=== PATIENT | male | born 1970 | race Caucasian/White ===

== ENCOUNTER 2016-06-15 04:26 | Emergency (ER) | payer BC ==
[~2016-06-15 04:26] MED LIST: ASAB PO; AUG875 PO; C5 PO; COREG12 PO; COREG25 PO; FLOMAX4 PO; HYDROCHLOROT25 MG PO; JANTOVEN5 MG PO; KLONO5 PO; L20 PO; L40 PO; LOTE40 PO; LOVENOX80 SC; MAGOX4 PO; MELA3 PO; MYLUD PO; NORCO PO; NORV5 PO; OCEAN NAS; P10; PRIN10 PO; PRIN5 PO; SPIRO25 PO; TYLENOL ARTH650 MG PO; [UNRECOGNIZED DRUG - OTHER] PO
[2016-06-15 04:36] LABS: INTERNATIONAL NORMAL RATI 1.4 UNITS (-); PARTIAL THROMBO TIME 28.1 SEC (22.5-37.2)
[2016-06-15 04:56] LABS: BASOPHILS 0.4 %; BASOPHILS ABSOLUTE 0.04 10/3/uL (0.0-0.16); EOSINOPHILS 1.5 %; EOSINOPHILS ABSOLUTE 0.16 10/3/uL (0.0-0.53); HEMATOCRIT 42.2 % (40.0-51.0); HEMOGLOBIN 13.8 g/dL (13.6-17.8); IMMATURE GRANULOCYTES 0.3 %; IMMATURE GRANULOCYTES ABSOLUTE 0.03 10/3/uL (0.0-0.11); LYMPHOCYTES 23.4 %; LYMPHOCYTES ABSOLUTE 2.52 10/3/uL (0.67-4.30); MEAN CORPUSCULAR VOLUME 91.7 fL (80-100); MEAN PLATELET VOLUME 9.7 fL (9.2-13.0); MONOCYTES ABSOLUTE 0.43 10/3/uL (0.21-1.20); NEUTROPHILS 70.4 %; NEUTROPHILS ABSOLUTE 7.61 10/3/uL (2.02-8.40); PLATELET COUNT 273 10/3/uL (150-400); WHITE BLOOD CELLS 10.8 10/3/uL (4.5-10.5)
[2016-06-15 04:58] LABS: CALCIUM, SERUM 8.3 MG/DL (8.5-10.4); CHLORIDE, SERUM 106 MMOL/L (96-112); CO2 (CARBON DIOXIDE) 22 MMOL/L (24-34); CREATININE 1.28 MG/DL (0.70-1.30); GFR AFRICAN AMERICAN 77 ML/MIN (>=60); GFR NON AFRICAN AMERICAN 67 ML/MIN (>=60); GLUCOSE, SERUM 119 MG/DL (60-99)
[2016-06-15 05:01] LABS: MANUAL DIFF NO %; MEAN CORPUS HGB CONC 32.7 g/dL (32.0-36.0)
[2016-06-15 05:06] LABS: POTASSIUM, SERUM 3.8 MMOL/L (3.5-5.3); SODIUM, SERUM 141 MMOL/L (135-148)
[2016-06-15 05:08] LABS: BUN (BLOOD UREA NITROGEN) 23 MG/DL (6-23)
[2016-06-15 05:10] LABS: CHEST PAIN PROFILE TAT 0 Hrs 27 Mins; TROPONIN I 0.12 NG/ML (<0.05)
[2016-06-15 05:26] LABS: ER CBC TAT 0 Hrs 03 Mins
[2016-10-18] MEDS ORDERED: COREG6 PO (10:47)
[2016-10-18] MEDS ORDERED: ELIQUIS 5 MG TAB5 MG PO (10:47)
[2016-10-18] MEDS ORDERED: SPIRO25 PO (10:48)
[2016-10-18] MEDS ORDERED: L40 PO (10:48)
[2016-10-18] MEDS ORDERED: FLOMAX4 PO (10:49)
[2016-10-18] MEDS ORDERED: VICKS INH (10:50)
== END 2016-06-15 06:26 | disposition home or self-care (01) ==
LOC: ER 04:26
PROVIDERS: Emergency Medicine
DX: I50.9 Heart failure, unspecified (principal); Z79.899 Other long term (current) drug therapy; Z79.01 Long term (current) use of anticoagulants
CPT/HCPCS: 71010; 80048; 83735; 83880; 84484; 85025; 85610; 85730; 93005; 96374; 96375; 99284; J1980; J2405; J2550

== ENCOUNTER 2016-06-29 23:06 | Inpatient (IN) | payer BC ==
--- NOTE | ~2016-06-29 | DS ---
Discharge Summary [facility] [address] [facility] [place]. [address] NAME: SABA PRICE : 69 STATUS : DIS IN PAT#: [id number] AGE: 46 ADM/REG DATE : 06/30/16 MR#: [id number] REPORT SERV DATE: 07/13/16 DICTATED BY: MIRIAM BRIGGS DATE: 07/12/16 REPORT STATUS : Draft TRANSCRIBED BY: MODL DATE: 07/12/16 Data Collection from hospitalization DISCHARGE DIAGNOSES: 1. Nonischemic cardiomyopathy. 2. Left ventricular thrombus. 3. Chronic kidney disease. 4. Congestive heart mtuuwmp-xhvueqru-teksc/chronic. 5. Former smoker. 6. Anxiety/panic disorder. CONSULTATIONS: None. PROCEDURES PERFORMED: 1. Cardiac catheterization, 06/30/2016. 2. Myocardial perfusion imaging study, 06/30/2016. DISCHARGE MEDICATIONS: Aspirin 81 mg daily, Coreg 12.5 mg twice a day, Lasix 40 mg at bedtime, Prinivil 5 mg daily, Aldactone 25 mg daily, Flomax 0.4 mg every morning, Coumadin 7.5 mg daily. He was instructed not to continue Mag-Ox, Bumex, or Klonopin. CONDITION AT DISCHARGE: Stable. DISPOSITION: The patient was discharged home on a low-sodium, low-cholesterol diet with activities as instructed. He would follow up with Dr. Arnaud Avendaño, 07/05/2016. He would follow up with Dr. Ely Briggs as instructed. HOSPITAL COURSE: This is a 46-year-old man, who has nonischemic cardiomyopathy, who presented following the acute onset of 7-8/10 intensity chest pain while at rest on the evening prior to this admission. The patient reports a duration of pain for 20-30 minutes with spontaneous resolution without treatment. Upon his arrival in the emergency department, he was asymptomatic. He reported associated nausea and epigastric abdominal discomfort with the pain. He reports that he was recently seen in the emergency department for fluid overload. He was treated with intravenous Lasix and discharged home. This had resolved since that time. He reports at that time a description of abdominal discomfort and intermittent nausea. There was intermittent meal association with nausea and epigastric discomfort. Until the evening prior to this admission, he had no significant chest discomfort. He was currently pain free. On evaluation, his initial enzyme was minimally elevated. He was admitted to the hospital at this time for further evaluation and treatment. Upon admission, we were going to treat him for gastroesophageal reflux disease. He does have known coronary artery disease with nonischemic cardiomyopathy. However, we were suspicious for potential GI etiology given any associated nausea and epigastric abdominal pain. We were going to arrange for a nuclear perfusion stress test if his second enzyme was unremarkable. It had been some time since he had an echocardiogram. We would arrange for the same to reevaluate left ventricular systolic function. He appeared clinically euvolemic by exam. A myocardial perfusion imaging study was performed. This demonstrated possible Discharge Summary [place] [id number] [facility] [place]. [address] NAME: SABA PRICE : 69 STATUS : DIS IN PAT#: [id number] AGE: 46 ADM/REG DATE : 06/30/16 MR#: [id number] REPORT SERV DATE: 07/13/16 DICTATED BY: MIRIAM BRIGGS DATE: 07/12/16 REPORT STATUS : Draft TRANSCRIBED BY: EBONI DATE: 07/12/16 mild inferolateral ischemia. Post infusion, left ventricular ejection fraction was 11%. Cardiomegaly was noted. This was overall high risk vasodilator stress test due to severely depressed left ventricular ejection fraction. It was felt that he would need to undergo a cardiac catheterization. He was taken to the cardiac cardiac catheterization technician, where he underwent the above mentioned procedure. He tolerated this well and there were no complications. The following day, he had no shortness of breath or chest pain. He had no significant coronary artery disease. He had severely elevated left ventricular end-diastolic filling pressure. Echocardiogram demonstrated severe global hypokinesis with an ejection fraction of 10%. Left ventricular apical thrombus was noted. Findings were consistent with nonischemic cardiomyopathy. INR level was 1.6. On 07/02/2016, his shortness of breath had decreased. He had no chest pain. His lungs were mostly clear. He said he was feeling better. Diuresis was being performed. Creatinine level had increased to 1.77. Oral Lasix was being given. The next day, discharge planning was performed. He had occasional nonsustained ventricular tachycardia. Diuretic was held that day. Blood pressure was controlled. Discharge planning was performed. On 07/04/2016, he was in a sinus rhythm. He had no dyspnea or chest pain. He was alert and cooperative. Chronic kidney disease had improved. Discharge instructions were given. Due to his improved and stable condition, he was discharged home with the above-stated instructions. Information collected by: Merna Hebert I submit the above information as my discharge summary. GLORY/EBONI Ely Briggs M.D. / [id number] CC: Natali Nolen Jr., M.D.
--- NOTE | ~2016-06-29 | HP ---
History And Physical [place] [address] [place]. [address] NAME: SABA PRICE : 69 STATUS : ADM Gokul PAT#: [id number] AGE: 46 ADM/REG DATE : 06/30/16 MR#: [id number] REPORT SERV DATE: 06/30/16 DICTATED BY: MIRIMA BRIGGS DATE: 06/30/16 REPORT STATUS : Draft TRANSCRIBED BY: MODL DATE: 06/30/16 DATE OF ADMISSION: 06/30/2016 CHIEF COMPLAINT: Chest pain, abdominal pain, and nausea. HISTORY OF PRESENT ILLNESS: The patient is a 46-year-old male with history of nonischemic cardiomyopathy who reported to the emergency department with complaints of nausea and chest discomfort. While at rest, the patient developed acute onset of 7 to 8/10 intensity chest discomfort. It was in the central substernal region. DICTATION ENDS HERE CSL/MODL Ely Briggs M.D. / [id number] CC: Natali Nolen Jr., M.D.
--- NOTE | ~2016-06-29 | HP ---
History And Physical [place] [address] [place]. [address] NAME: SABA PRICE : 69 STATUS : ADM Gokul PAT#: [id number] AGE: 46 ADM/REG DATE : 06/30/16 MR#: [id number] REPORT SERV DATE: 06/30/16 DICTATED BY: MIRIAM BRIGGS DATE: 06/30/16 REPORT STATUS : Draft TRANSCRIBED BY: MODL DATE: 06/30/16 DATE OF ADMISSION: 06/30/2016 CHIEF COMPLAINT: Nausea, abdominal pain, and chest pain. HISTORY OF PRESENT ILLNESS: 46-year-old male with known nonischemic cardiomyopathy who presents following the acute onset of 7-8/10 intensity chest pain while at rest last evening. The patient reports duration of pain for 20-30 minutes with spontaneous resolution without treatment. Upon his arrival in the emergency department, he was asymptomatic. He reports associated nausea and epigastric abdominal discomfort with the pain. He reports that he was recently seen in the emergency department for "fluid overload." Treated with intravenous Lasix and discharged to home. This has resolved since that time. He reports at the time that he described abdominal discomfort and intermittent nausea. Intermittent meal association with the nausea and epigastric discomfort. Until last evening, the patient has had no significant chest discomfort. The patient is currently pain free. On evaluation, initial enzyme was minimally elevated. The patient was admitted for further evaluation and treatment. The patient endorses a history of GERD but states that he has never been on medications. PAST MEDICAL HISTORY: 1. Nonischemic cardiomyopathy. a. Cardiac catheterization 2012 with no flow limiting CAD. 2. Pulmonary embolus in 2013 with sporadic chronic anticoagulation. Has not been anticoagulated since at least first part of 2015 due to social issues and coughs related to testing. 3. Anxiety/panic disorder. SOCIAL HISTORY: Denies current smoking. Ill-defined alcohol use. Denies illicit drug use. He has been unemployed for the last 2 years. FAMILY HISTORY: Noncontributory. ALLERGIES: NO KNOWN DRUG ALLERGIES. THE PATIENT DOES HOWEVER REPORT MULTIPLE TREATMENTS WITH PHENERGAN IN THE PAST WITHOUT DIFFICULTIES. THE LAST TIME HE RECEIVED PHENERGAN, HE HAD SOME TRANSIENT "MUSCLE SPASM" IN THE LEGS. MEDICATIONS: Carvedilol 12.5 mg b.i.d., furosemide 40 mg b.i.d., Bumex 2 mg daily, lisinopril 5 mg daily, Flomax 0.4 mg daily. REVIEW OF SYSTEMS: Negative for all organ systems except per the history of present illness. PHYSICAL EXAMINATION: VITALS: Pulse 102, blood pressure ranged from 128/97 to 144/98, respirations 12 and History And Physical [place] [address] [facility] [place]. [address] NAME: SABA PRICE : 68 STATUS : ADM Gokul PAT#: [id number] AGE: 46 ADM/REG DATE : 06/30/16 MR#: [id number] REPORT SERV DATE: 06/30/16 DICTATED BY: MIRIAM BRIGGS DATE: 06/30/16 REPORT STATUS : Draft TRANSCRIBED BY: EBONI DATE: 06/30/16 unlabored, saturating 99% on room air, weight 91 kg. GENERAL: Middle-aged male, in no acute distress. HEENT: Normal. NECK: Supple, no JVD or bruit, normal carotid upstroke bilaterally, no thyromegaly. LUNGS: Clear to auscultation and percussion. No wheezes, rales or rhonchi. No use of accessory muscles. CARDIOLOGY: Regular rhythm, normal S1, S2, no thrill, no murmur, rubs or gallops, normal PMI. ABDOMEN: Bowel sounds positive, soft and nondistended. Mild epigastric tenderness. No peritoneal signs. No masses or aortic bruits. No hepatosplenomegaly or hepatojugular reflux. EXTREMITIES: No edema. Normal pulses. No clubbing or cyanosis. SKIN: Warm and dry, no significant rash. NEUROLOGIC: Alert and oriented x 3. Appropriate mood. LABORATORY DATA: Sodium 141, potassium 4.4, chloride 102, BUN 23, creatinine 1.55. Glomerular filtration rate 61, glucose 117, magnesium 2.2. WBC 11.5, hemoglobin 14.4, hematocrit 44.2, platelets 292,000. INR 1.4, troponin 0.19. EKG: Sinus tachycardia. Probable biatrial enlargement. Left anterior fascicular block. Lateral T-wave changes suggesting possible ischemia. IMPRESSION: Chest pain. The patient without known coronary artery disease, however, with nonischemic cardiomyopathy. Suspicious for potential GI etiology given associated nausea and epigastric abdominal pain. We will treat for GERD. Given his cardiac history, we will arrange for nuclear perfusion stress test if second enzyme is unremarkable. It has been some time it appears since he has had an echocardiogram. We will arrange for the same to re evaluate left ventricular systolic function. He appears clinically euvolemic by exam. Further testing and treatment based upon diagnostic testing results. CSL/MODL Ely Briggs M.D. / [id number] CC: Natali Nolen Jr.
[2016-06-29 23:41] LABS: BASOPHILS 0.4 %; BASOPHILS ABSOLUTE 0.05 10/3/uL (0.0-0.16); EOSINOPHILS 1.4 %; EOSINOPHILS ABSOLUTE 0.16 10/3/uL (0.0-0.53); ER CBC TAT 0 Hrs 13 Mins; HEMATOCRIT 44.2 % (40.0-51.0); HEMOGLOBIN 14.4 g/dL (13.6-17.8); IMMATURE GRANULOCYTES 0.2 %; IMMATURE GRANULOCYTES ABSOLUTE 0.02 10/3/uL (0.0-0.11); LYMPHOCYTES ABSOLUTE 2.52 10/3/uL (0.67-4.30); MANUAL DIFF NO %; MEAN CORPUS HGB CONC 32.6 g/dL (32.0-36.0); MEAN CORPUSCULAR HEMOGLOB 30.1 pg (26.0-34.0); MEAN CORPUSCULAR VOLUME 92.3 fL (80-100); MEAN PLATELET VOLUME 9.6 fL (9.2-13.0); MONOCYTES 6.4 %; MONOCYTES ABSOLUTE 0.73 10/3/uL (0.21-1.20); NEUTROPHILS 69.6 %; NEUTROPHILS ABSOLUTE 7.97 10/3/uL (2.02-8.40); PLATELET COUNT 292 10/3/uL (150-400); RBC DISTRIBUTION WIDTH 13.8 % (12.0-16.0); RED CELL COUNT 4.79 10/6/uL (4.7-6.1); WHITE BLOOD CELLS 11.5 10/3/uL (4.5-10.5)
[2016-06-29 23:44] LABS: INTERNATIONAL NORMAL RATI 1.4 UNITS (-); PARTIAL THROMBO TIME 27.3 SEC (22.5-37.2); PROTIME (NOT ORD) 16.7 SEC (12.0-14.5)
[2016-06-29 23:52] LABS: BUN (BLOOD UREA NITROGEN) 23 MG/DL (6-23); CALCIUM, SERUM 9.3 MG/DL (8.5-10.4); CHLORIDE, SERUM 102 MMOL/L (96-112); CO2 (CARBON DIOXIDE) 29 MMOL/L (24-34); CREATININE 1.55 MG/DL (0.70-1.30); GFR AFRICAN AMERICAN 61 ML/MIN (>=60); GFR NON AFRICAN AMERICAN 53 ML/MIN (>=60); GLUCOSE, SERUM 117 MG/DL (60-99); POTASSIUM, SERUM 4.4 MMOL/L (3.5-5.3); SODIUM, SERUM 141 MMOL/L (135-148)
[2016-06-29 23:53] LABS: CHEST PAIN PROFILE TAT 0 Hrs 25 Mins; TROPONIN I 0.19 NG/ML (<0.05)
[2016-06-30] MEDS ORDERED: PRIN5 PO (01:11)
[2016-06-30] MEDS ORDERED: FLOMAX4 PO (01:11)
[2016-06-30] MEDS ORDERED: COREG12 PO (01:11)
[2016-06-30] MEDS ORDERED: L40 PO (01:12)
[2016-06-30] MEDS ORDERED: BUM2 PO (01:12)
[2016-06-30 07:15] LABS: BASOPHILS 0.4 %; BASOPHILS ABSOLUTE 0.04 10/3/uL (0.0-0.16); EOSINOPHILS 0.9 %; HEMATOCRIT 40.1 % (40.0-51.0); HEMOGLOBIN 12.9 g/dL (13.6-17.8); IMMATURE GRANULOCYTES 0.2 %; IMMATURE GRANULOCYTES ABSOLUTE 0.02 10/3/uL (0.0-0.11); LYMPHOCYTES 24.8 %; LYMPHOCYTES ABSOLUTE 2.78 10/3/uL (0.67-4.30); MEAN CORPUS HGB CONC 32.2 g/dL (32.0-36.0); MEAN CORPUSCULAR HEMOGLOB 29.5 pg (26.0-34.0); MEAN CORPUSCULAR VOLUME 91.6 fL (80-100); MEAN PLATELET VOLUME 9.4 fL (9.2-13.0); MONOCYTES 5.8 %; MONOCYTES ABSOLUTE 0.65 10/3/uL (0.21-1.20); NEUTROPHILS 67.9 %; NEUTROPHILS ABSOLUTE 7.61 10/3/uL (2.02-8.40); PLATELET COUNT 299 10/3/uL (150-400); RBC DISTRIBUTION WIDTH 13.9 % (12.0-16.0); RED CELL COUNT 4.38 10/6/uL (4.7-6.1); WHITE BLOOD CELLS 11.2 10/3/uL (4.5-10.5)
[2016-06-30 07:21] LABS: MANUAL DIFF NO %
[2016-06-30 07:32] LABS: CHOL/HDL RATIO(NOT ORDER) 3.3 (0-5); TROPONIN I 0.15 NG/ML (<0.05)
[2016-06-30 09:14] LABS: ALBUMIN 3.5 G/DL (3.5-5.0); DIRECT BILIRUBIN 0.5 MG/DL (0.0-0.4); INDIRECT BILIRUBIN(NOT ORDER) 1.2 MG/DL (0.1-0.9); TOTAL BILIRUBIN 1.7 MG/DL (0-1.2)
[2016-07-01 03:59] LABS: INTERNATIONAL NORMAL RATI 1.6 UNITS (-); PARTIAL THROMBO TIME 41.7 SEC (22.5-37.2); PROTIME (NOT ORD) 18.8 SEC (12.0-14.5)
[2016-07-02 04:09] LABS: BASOPHILS 0.2 %; BASOPHILS ABSOLUTE 0.02 10/3/uL (0.0-0.16); EOSINOPHILS 1.1 %; EOSINOPHILS ABSOLUTE 0.11 10/3/uL (0.0-0.53); HEMOGLOBIN 14.9 g/dL (13.6-17.8); IMMATURE GRANULOCYTES 0.3 %; IMMATURE GRANULOCYTES ABSOLUTE 0.03 10/3/uL (0.0-0.11); LYMPHOCYTES 35.1 %; LYMPHOCYTES ABSOLUTE 3.42 10/3/uL (0.67-4.30); MEAN CORPUSCULAR HEMOGLOB 30.5 pg (26.0-34.0); MEAN CORPUSCULAR VOLUME 92.2 fL (80-100); MEAN PLATELET VOLUME 10.3 fL (9.2-13.0); MONOCYTES 6.9 %; MONOCYTES ABSOLUTE 0.67 10/3/uL (0.21-1.20); NEUTROPHILS 56.4 %; NEUTROPHILS ABSOLUTE 5.48 10/3/uL (2.02-8.40); PLATELET COUNT 272 10/3/uL (150-400); RED CELL COUNT 4.89 10/6/uL (4.7-6.1); WHITE BLOOD CELLS 9.7 10/3/uL (4.5-10.5)
[2016-07-02 04:11] LABS: HEMATOCRIT 45.1 % (40.0-51.0); MANUAL DIFF NO %
[2016-07-02 04:20] LABS: INTERNATIONAL NORMAL RATI 1.5 UNITS (-); PROTIME (NOT ORD) 17.5 SEC (12.0-14.5)
[2016-07-02 04:23] LABS: CALCIUM, SERUM 8.7 MG/DL (8.5-10.4); CHLORIDE, SERUM 98 MMOL/L (96-112); CO2 (CARBON DIOXIDE) 29 MMOL/L (24-34); CREATININE 1.77 MG/DL (0.70-1.30); GFR AFRICAN AMERICAN 52 ML/MIN (>=60); GFR NON AFRICAN AMERICAN 45 ML/MIN (>=60); GLUCOSE, SERUM 119 MG/DL (60-99); POTASSIUM, SERUM 4.2 MMOL/L (3.5-5.3); SODIUM, SERUM 140 MMOL/L (135-148)
[2016-07-02 04:25] LABS: BUN (BLOOD UREA NITROGEN) 34 MG/DL (6-23)
[2016-07-03 06:21] LABS: INTERNATIONAL NORMAL RATI 1.6 UNITS (-); PROTIME (NOT ORD) 18.9 SEC (12.0-14.5)
[2016-07-03 06:31] LABS: CALCIUM, SERUM 8.8 MG/DL (8.5-10.4); CHLORIDE, SERUM 99 MMOL/L (96-112); CREATININE 1.84 MG/DL (0.70-1.30); GFR AFRICAN AMERICAN 49 ML/MIN (>=60); GFR NON AFRICAN AMERICAN 43 ML/MIN (>=60); GLUCOSE, SERUM 107 MG/DL (60-99); POTASSIUM, SERUM 4.7 MMOL/L (3.5-5.3); SODIUM, SERUM 140 MMOL/L (135-148)
[2016-07-03 06:33] LABS: BUN (BLOOD UREA NITROGEN) 27 MG/DL (6-23); CO2 (CARBON DIOXIDE) 35 MMOL/L (24-34)
[2016-07-04 06:00] LABS: BASOPHILS 0.3 %; BASOPHILS ABSOLUTE 0.03 10/3/uL (0.0-0.16); EOSINOPHILS 1.8 %; EOSINOPHILS ABSOLUTE 0.16 10/3/uL (0.0-0.53); HEMATOCRIT 41.3 % (40.0-51.0); HEMOGLOBIN 13.4 g/dL (13.6-17.8); IMMATURE GRANULOCYTES 0.2 %; IMMATURE GRANULOCYTES ABSOLUTE 0.02 10/3/uL (0.0-0.11); LYMPHOCYTES 35.2 %; LYMPHOCYTES ABSOLUTE 3.06 10/3/uL (0.67-4.30); MANUAL DIFF NO %; MEAN CORPUS HGB CONC 32.4 g/dL (32.0-36.0); MEAN CORPUSCULAR VOLUME 92.6 fL (80-100); MEAN PLATELET VOLUME 10.3 fL (9.2-13.0); NEUTROPHILS 54.5 %; NEUTROPHILS ABSOLUTE 4.73 10/3/uL (2.02-8.40); PLATELET COUNT 240 10/3/uL (150-400); RBC DISTRIBUTION WIDTH 14.3 % (12.0-16.0); RED CELL COUNT 4.46 10/6/uL (4.7-6.1); WHITE BLOOD CELLS 8.7 10/3/uL (4.5-10.5)
[2016-07-04 06:08] LABS: INTERNATIONAL NORMAL RATI 1.9 UNITS (-); PROTIME (NOT ORD) 21.5 SEC (12.0-14.5)
[2016-07-04 06:14] LABS: BUN (BLOOD UREA NITROGEN) 24 MG/DL (6-23); CALCIUM, SERUM 8.5 MG/DL (8.5-10.4); CHLORIDE, SERUM 103 MMOL/L (96-112); CO2 (CARBON DIOXIDE) 29 MMOL/L (24-34); CREATININE 1.62 MG/DL (0.70-1.30); GFR AFRICAN AMERICAN 58 ML/MIN (>=60); GFR NON AFRICAN AMERICAN 50 ML/MIN (>=60); GLUCOSE, SERUM 110 MG/DL (60-99); POTASSIUM, SERUM 4.6 MMOL/L (3.5-5.3); SODIUM, SERUM 139 MMOL/L (135-148)
[2016-07-04] MEDS ORDERED: ASAB PO (09:27)
[2016-07-04] MEDS ORDERED: SPIRO25 PO (09:31)
[2016-07-04] MEDS ORDERED: C25 PO (09:33)
[2016-10-18] MEDS ORDERED: COREG6 PO (10:47)
[2016-10-18] MEDS ORDERED: ELIQUIS 5 MG TAB5 MG PO (10:47)
[2016-10-18] MEDS ORDERED: SPIRO25 PO (10:48)
[2016-10-18] MEDS ORDERED: L40 PO (10:48)
[2016-10-18] MEDS ORDERED: FLOMAX4 PO (10:49)
[2016-10-18] MEDS ORDERED: VICKS INH (10:50)
== END 2016-07-04 11:05 | disposition home or self-care (01) | DRG 286 ==
LOC: ER 23:06 → 7NO 06-30 01:10
PROVIDERS: Emergency Medicine; Internal Medicine Cardiovascular Disease; Student in an Organized Health Care Education/Training Program
PROC: 4A023N7 Measurement of Cardiac Sampling and Pressure, Left Heart, Percutaneous Approach (ICD-10-PCS; principal; 2016-06-30)
PROC: B2111ZZ Fluoroscopy of Multiple Coronary Arteries using Low Osmolar Contrast (ICD-10-PCS; 2016-06-30)
DX: I13.0 Hypertensive heart and chronic kidney disease with heart failure and stage 1 through stage 4 chronic kidney disease, or unspecified chronic kidney disease (principal); I50.23 Acute on chronic systolic (congestive) heart failure; I47.2 Ventricular tachycardia; N17.9 Acute kidney failure, unspecified; I42.0 Dilated cardiomyopathy; I51.3 Intracardiac thrombosis, not elsewhere classified; K21.9 Gastro-esophageal reflux disease without esophagitis; F41.9 Anxiety disorder, unspecified; F41.0 Panic disorder [episodic paroxysmal anxiety]; N18.9 Chronic kidney disease, unspecified; Z86.711 Personal history of pulmonary embolism; Z79.01 Long term (current) use of anticoagulants
CPT/HCPCS: 71010; 78452; 80048; 80061; 80076; 82150; 83690; 83735; 83880; 84484; 85025; 85610; 85730; 93005; 93017; 93458; 99152; 99285; A9270-GY; A9502; C1769; C1887; C1894; C8929; C9113; J2250; J2405; J3010; Q9957; Q9967